=== PATIENT | male | born 1950 | race Caucasian/White ===

== ENCOUNTER → 2016-05-03 | Outpatient (CLI) | payer OTHER ==
--- NOTE | 2016-05-03 18:40 | DX ---
Right hand, 2 views HISTORY: Pain, osteoarthritis, M 25.50 TECHNIQUE: AP and ball-catcher's view. FINDINGS: Mild joint space narrowing, subchondral sclerosis and osteophytes of the thumb interphalang eal joint. No significant degenerative changes of the metacarpal phalangeal joints or second through fifth interphalangeal joints. No destructive osseous lesions. No significant degenerative changes of the intercarpal joints or first carpometacarpal joint. 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
--- NOTE | 2016-05-03 19:53 | DX ---
Left Hand, 2 Views HISTORY: Pain, osteoarthritis, M25.50. TECHNIQUE: AP and ball-catcher's view. FINDINGS: Mild joint space narrowing, subchondral sclerosis and osteophytes of the thumb interphalang eal joint. Subchondral sclerosis of the first metacarpophalangeal joint. Mild joint space narrowing o f the fifth distal interphalangeal joint. Small osteophytes involving the second distal interphalange al joint region. No evidence of erosions. No destructive osseous lesions. No significant degenerative changes of the intercarpal joints or first carpometacarpal joint. IMPRESSION: Mild osteoarthritis of the left hand especially in the thumb interphalangeal joint.
== END ==
LOC: BMCIMAGING 12:01
PROVIDERS: ATTEND Internal Medicine Rheumatology
DX: M19.041 Primary osteoarthritis, right hand (principal); M19.042 Primary osteoarthritis, left hand
CPT/HCPCS: 86812-90

== ENCOUNTER → 2016-05-04 | Outpatient (CLI) | payer OTHER ==
--- NOTE | 2016-05-04 10:14 | MR ---
MRI of the Lumbar Spine (Without Contrast) at 0837 Hours Clinical Indications: Back pain. M54.10. Technique: Sagittal and axial T1 and T2 and sagittal STIR MR sequences of the lumbar spine without co ntrast. Axial imaging from T11-S1. Findings: Lumbar vertebral bodies are of normal height without compression fractures. Conus medulla ris appears normal and ends at L1-L2. T11-T12: Circumferential disk bulge and right paramedian disk herniation resulting in moderate centra l canal stenosis with slight cord compression and [id number] right neural foraminal stenosis. N o cord edema. T12-L1: No disk herniation or stenosis. L1-L2: Mild bilateral facet arthropathy without disk herniation or stenosis. L2-L3: Mild bilateral facet arthropathy without disk herniation or stenosis. L3-L4: Severe degenerative disk disease with severe loss of disk height, broad-based central disk her niation, extrusion, circumferential osteophytes, and moderate bilateral facet arthropathy resulting i n moderate central canal stenosis and [id number] bilateral neural foraminal stenosis. L4-L5: Mild degenerative disk disease with a left paramedian 5 mm disk herniation, protrusion, and mo derate bilateral facet arthropathy resulting in moderate central canal stenosis, severe left lateral recess with dorsal displacement of the left-sided intrathecal nerve roots, and [id number] bilat eral neural foraminal stenosis. L5-S1: Moderate degenerative disk disease with moderate loss of disk height, right paramedian disk he rniation, protrusion and mild bilateral facet arthropathy resulting in mild central canal stenosis an d [id number] bilateral neural foraminal stenosis. Impression: 1. T11-T12: Moderate central canal stenosis secondary to degenerative disk disease and right paramedi an disk herniation. 2. L3-L4: Moderate central canal stenosis secondary to broad-based central disk herniation, degenerat omar disk disease and facet arthropathy. 3. L4-L5: Moderate central canal stenosis secondary to left paramedian disk herniation and facet arth ropathy. 4. L5-S1: Mild central canal stenosis secondary to right paramedian disk herniation. 5. Please see above findings at specific disk levels.
== END ==
LOC: FIMAGING 07:52
PROVIDERS: ATTEND Family Medicine
DX: M48.04 Spinal stenosis, thoracic region (principal); M48.06 Spinal stenosis, lumbar region; M51.34 Other intervertebral disc degeneration, thoracic region; M51.36 Other intervertebral disc degeneration, lumbar region; M51.84 Other intervertebral disc disorders, thoracic region

== ENCOUNTER → 2016-10-22 | Outpatient (CLI) | payer OTHER | LOC: BMCIMAGING 10:55 | PROVIDERS: ATTEND Physician Assistant | DX: M79.662 Pain in left lower leg (principal); M25.572 Pain in left ankle and joints of left foot ==

== ENCOUNTER → 2018-07-03 | Outpatient (CLI) | payer OTHER | LOC: FIMAGING 08:02 | PROVIDERS: ATTEND Physician Assistant Medical | DX: J31.2 Chronic pharyngitis (principal); K44.9 Diaphragmatic hernia without obstruction or gangrene ==